=== PATIENT | male | born 1960 | race Caucasian/White ===

== ENCOUNTER 2016-10-04 20:49 | Emergency (ER) | payer MEDICARE, OTHER ==
[~2016-10-04] VITALS: Ht 177.8 cm; Wt 90.9 kg
[~2016-10-04 20:49] MED LIST: AMOXICILLIN 8751 TAB PO; ANTIVERT 25MG25 MG PO; ATARAX 25MG25 MG/TAB PO; ATIVAN1 MG PO; CABERGOLINE0.5 MG PO; DOSTINEX0.5 MG/TAB PO; FLOVENT 110MCG7.9 GM IH; IBU-8800 MG PO; KLONOPIN2 MG PO; LUNESTA 1MG TAB1 MG PO; MINIPRESS 1M1 MG/CAP PO; NASACORT55 MCG/ACT NS; NIACIN500 M3 PO; PREDNISONE20 MG PO; PROAIR HFA0.09 MG/AC IH; RESTORIL30 MG PO; SEROQUEL50 MG PO; SERTRALINE HCL100 MG PO; VISTARIL 2525 MG/CAP PO; WELLBUTRIN SR150 M1 PO; ZOCOR 10MG10 MG PO; ZOLOFT 100MG100 MG PO; [UNRECOGNIZED DRUG - OTHER] PO; [UNRECOGNIZED DRUG - OTHER] PO
[2016-10-04 20:50] VITALS: TEMP 97.8
[2016-10-04] MEDS ORDERED: PREDNISONE20 MG PO (21:14)
[2016-10-04 22:10] VITALS: BP 125/79; PULSE 69
== END 2016-10-04 22:11 | disposition home or self-care (01) ==
LOC: COL.ER 20:49
DX: T78.40XA Allergy, unspecified, initial encounter (principal)
CPT/HCPCS: J7512

== ENCOUNTER 2016-11-13 11:35 | Emergency (ER) | payer MEDICARE, OTHER ==
[~2016-11-13] VITALS: Ht 177.8 cm; Wt 90.9 kg
[2016-11-13 11:41] VITALS: BP 160/91; PULSE 72; TEMP 98.7
== END 2016-11-13 14:04 | disposition home or self-care (01) ==
LOC: COL.ER 11:35
DX: S61.012A Laceration without foreign body of left thumb without damage to nail, initial encounter (principal); F32.9 Major depressive disorder, single episode, unspecified; Z23 Encounter for immunization; W29.1XXA Contact with electric knife, initial encounter

== ENCOUNTER 2016-11-26 10:16 | Emergency (ER) | payer MEDICARE, OTHER ==
[2016-11-26 10:25] VITALS: BP 145/88; PULSE 70; TEMP 98.5
== END 2016-11-26 10:30 | disposition home or self-care (01) ==
LOC: COL.ER 10:16
DX: Z48.02 Encounter for removal of sutures (principal)

== ENCOUNTER 2017-10-26 18:09 | Emergency (ER) | payer MEDICARE, OTHER ==
[~2017-10-26] VITALS: Ht 177.8 cm; Wt 90.9 kg
[2017-10-26 18:11] VITALS: BP 178/88; TEMP 97.8
[2017-10-26] MEDS ORDERED: FLOVENT 110MCG7.9 GM IH (18:29)
[2017-10-26] MEDS ORDERED: SEROQUEL50 MG PO (18:30)
[2017-10-26] MEDS ORDERED: SINGULAIR 110 MG/TAB PO (18:30)
[2017-10-26] MEDS ORDERED: KLONOPIN 0.5MG0.5 MG PO (18:31)
[2017-10-26] MEDS ORDERED: INVEGA3 MG PO (18:31)
[2017-10-26] MEDS ORDERED: LIPITOR 80MG80 MG PO (18:31)
[2017-10-26 19:12] VITALS: PULSE 56
== END 2017-10-26 19:12 | disposition home or self-care (01) ==
LOC: COL.ER 18:09
DX: S61.211A Laceration without foreign body of left index finger without damage to nail, initial encounter (principal); F43.10 Post-traumatic stress disorder, unspecified; Z79.51 Long term (current) use of inhaled steroids; W26.8XXA Contact with other sharp object(s), not elsewhere classified, initial encounter

== ENCOUNTER 2017-11-10 08:52 | Emergency (ER) | payer MEDICARE, OTHER ==
[~2017-11-10 08:52] MED LIST changes: +INVEGA3 MG PO; +KLONOPIN 0.5MG0.5 MG PO; +LIPITOR 80MG80 MG PO; +SINGULAIR 110 MG/TAB PO
[2017-11-10 08:56] VITALS: BP 144/89; PULSE 72; TEMP 97.2
== END 2017-11-10 09:02 | disposition home or self-care (01) ==
LOC: COL.ER 08:52
DX: S61.412D Laceration without foreign body of left hand, subsequent encounter (principal); Z79.51 Long term (current) use of inhaled steroids; X58.XXXD Exposure to other specified factors, subsequent encounter

== ENCOUNTER → 2019-06-16 | Outpatient (CLI) | payer MEDICARE, OTHER | LOC: COL.RAD 09:53 | DX: N28.1 Cyst of kidney, acquired (principal); R74.0 Nonspecific elevation of levels of transaminase and lactic acid dehydrogenase [LDH] ==

== ENCOUNTER 2019-08-13 22:34 | Emergency (ER) | payer MEDICARE, OTHER ==
[~2019-08-13] VITALS: Ht 177.8 cm; Wt 102.3 kg
[2019-08-13 22:38] VITALS: TEMP 97.4
[2019-08-13 23:06] LABS: BASO % 0.4 % (0.0-2.0); EOS # 0.3 (0.0-0.7); EOS % 2.9 % (0-4.0); GRAN # 4.9 (1.4-6.5); HEMATOCRIT 48.4 % (42.0-52.0); HEMOGLOBIN 16.4 g/dl (13.5-18.0); LYMPH # 3.7 (1.2-3.4); LYMPH % 37.8 % (20.0-51.0); MEAN CELL VOLUME 90 fl (80.0-100.0); MEAN CORPUSCULAR HEMOGLOBIN 30 pg (27.0-31.0); MEAN CORPUSCULAR HGB CONC 34 g/dl (33.0-37.0); MEAN PLATELET VOLUME 10.7 fl (7.4-10.4); MONO # 0.8 (0.1-0.6); MONO % 8.6 % (1.7-9.3); PLATELET COUNT 123 K/mm3 (130-400); REDCELL DISTRIBUTION WIDTH-CV 13.1 % (11.5-14.5)
[2019-08-13 23:12] LABS: ALBUMIN 4.3 gm/dL (3.5-5.0); BILIRUBIN,TOTAL 0.8 mg/dL (0.0-1.0); CALCIUM 9.8 mg/dL (8.4-10.2); CREATININE, serum 1.06 (0.66-1.25); POTASSIUM 4.1 mmol/L (3.4-5.0); TOTAL PROTEIN 7.8 gm/dL (6.4-8.2)
[2019-08-14 00:25] LABS: COLLECTION METHOD CLEAN CATCH
[2019-08-14 00:54] LABS: AMORPHOUS CRYSTAL Present /uL; MUCOUS Present /lpf; PH 7 (5-8); SQUAMOUS EPITHELIAL None Seen /hpf; URINE APPEARANCE Cloudy; URINE BACTERIA Rare /hpf; URINE BILIRUBIN Negative (NEGATIVE); URINE BLOOD Negative (NEGATIVE); URINE COLOR Yellow; URINE GLUCOSE Negative (NEGATIVE); URINE KETONE Negative (NEGATIVE); URINE LEUKOCYTE ESTERASE Negative (NEGATIVE); URINE NITRATE Negative (NEGATIVE); URINE PROTEIN(semi-quant) Negative (NEGATIVE); URINE UROBILINOGEN Negative (NEGATIVE)
[2019-08-14 06:16] VITALS: BP 159/88; PULSE 78
== END 2019-08-14 06:30 | disposition short-term general hospital (02) ==
LOC: COL.ER 22:34
PROVIDERS: Emergency Medicine
DX: I81 Portal vein thrombosis (principal); E78.5 Hyperlipidemia, unspecified; F43.10 Post-traumatic stress disorder, unspecified; Z86.73 Personal history of transient ischemic attack (TIA), and cerebral infarction without residual deficits
CPT/HCPCS: J1170; J1650; J2405; J2765; J3010; J7030; Q9967

== ENCOUNTER 2021-02-12 12:48 | Emergency (ER) | payer MEDICARE, OTHER ==
[~2021-02-12] VITALS: Ht 177.8 cm; Wt 102.3 kg
[2021-02-12 12:52] VITALS: TEMP 98
[2021-02-12 13:23] VITALS: BP 119/90; PULSE 76
== END 2021-02-12 13:24 | disposition home or self-care (01) ==
LOC: COL.ER 12:48
DX: S91.301A Unspecified open wound, right foot, initial encounter (principal); E78.5 Hyperlipidemia, unspecified; F43.10 Post-traumatic stress disorder, unspecified; Z79.899 Other long term (current) drug therapy; W26.8XXA Contact with other sharp object(s), not elsewhere classified, initial encounter; Y93.01 Activity, walking, marching and hiking; Y92.59 Other trade areas as the place of occurrence of the external cause

== ENCOUNTER 2021-05-29 13:49 | Emergency (ER) | payer MEDICARE, OTHER ==
[~2021-05-29] VITALS: Ht 177.8 cm; Wt 106.8 kg
[2021-05-29 14:08] VITALS: TEMP 98.6
[2021-05-29] MEDS ORDERED: AMOXICILLIN 8751 TAB PO (14:23)
[2021-05-29 15:12] VITALS: BP 158/68; PULSE 88
== END 2021-05-29 15:15 | disposition home or self-care (01) ==
LOC: COL.ER 13:49
DX: S61.452A Open bite of left hand, initial encounter (principal); E78.5 Hyperlipidemia, unspecified; F43.10 Post-traumatic stress disorder, unspecified; Z86.73 Personal history of transient ischemic attack (TIA), and cerebral infarction without residual deficits; Z79.899 Other long term (current) drug therapy; W53.11XA Bitten by rat, initial encounter

== ENCOUNTER 2021-10-08 15:49 | Emergency (ER) | payer MEDICARE, OTHER ==
[~2021-10-08] VITALS: Ht 177.8 cm; Wt 104.5 kg
[2021-10-08 15:54] VITALS: TEMP 98
[2021-10-08 16:27] LABS: BASO # 0.1 K/mm3 (0.0-0.2); BASO % 0.8 % (0.0-2.0); EOS # 0.4 K/mm3 (0.0-0.7); EOS % 5.5 % (0.0-4.0); GRAN % 46.3 % (42.2-75.2); HEMATOCRIT 47.5 % (42.0-52.0); HEMOGLOBIN 16.4 g/dl (13.5-18.0); LYMPH # 2.5 K/mm3 (1.2-3.4); LYMPH % 38.9 % (20.0-51.0); MEAN CELL VOLUME 89 fl (80.0-100.0); MEAN CORPUSCULAR HEMOGLOBIN 31 pg (27-31); MEAN CORPUSCULAR HGB CONC 35 g/dl (33.0-37.0); MEAN PLATELET VOLUME 10.9 fl (7.4-10.4); MONO # 0.5 K/mm3 (0.1-0.6); PLATELET COUNT 154 K/mm3 (130-400); RED BLOOD COUNT 5.33 M/mm3 (4.20-5.60); REDCELL DISTRIBUTION WIDTH-CV 13.2 % (11.5-14.5)
[2021-10-08 16:38] LABS: ALBUMIN 3.7 gm/dL (3.4-4.8); BILIRUBIN,TOTAL 0.7 mg/dL (0.2-1.2); CALCIUM 8.7 mg/dL (8.4-10.2); POTASSIUM 4.2 mmol/L (3.5-4.5); TOTAL PROTEIN 7.3 gm/dL (6.2-8.1)
[2021-10-08] MEDS ORDERED: GARLIC100 MG PO (16:48)
[2021-10-08] MEDS ORDERED: OSTEO-BI-FLEX 21 TAB PO (16:48)
[2021-10-08] MEDS ORDERED: [UNRECOGNIZED DRUG - OTHER] (16:49)
[2021-10-08] MEDS ORDERED: MAGNESIUM250 M1 PO (16:49)
[2021-10-08 16:50] LABS: C-REACTIVE PROTEIN 0.11 mg/dL (0.00-0.50)
[2021-10-08] MEDS ORDERED: ZYRTEC 10MG10 MG PO (16:50)
[2021-10-08] MEDS ORDERED: OMEGA-31 SGL PO (16:50)
[2021-10-08] MEDS ORDERED: DEPAKOTE ER 50500 MG PO (16:51)
[2021-10-08] MEDS ORDERED: NIACIN 100100 MG/TAB PO (16:51)
[2021-10-08] MEDS ORDERED: UROXATRAL10 M1 PO (16:52)
[2021-10-08] MEDS ORDERED: XARELTO10 MG PO (16:53)
[2021-10-08] MEDS ORDERED: TUMERIC (16:53)
[2021-10-08] MEDS ORDERED: MELATONIN5 M1 SL (16:54)
[2021-10-08] MEDS ORDERED: [UNRECOGNIZED DRUG - OTHER] (16:54)
[2021-10-08 16:58] LABS: ERYTHROCYTE SEDIMENTATION RATE 1 mm/hr (0-30)
[2021-10-08] MEDS ORDERED: FIORICET 325 MG1 TA1 PO (17:34)
[2021-10-08 17:48] VITALS: BP 142/76; PULSE 68
== END 2021-10-08 17:49 | disposition home or self-care (01) ==
LOC: COL.ER 15:49
PROVIDERS: Family Medicine
DX: G89.29 Other chronic pain (principal); R51.9 Headache, unspecified; Z87.891 Personal history of nicotine dependence; Z86.73 Personal history of transient ischemic attack (TIA), and cerebral infarction without residual deficits; Z79.01 Long term (current) use of anticoagulants
CPT/HCPCS: J7120

== ENCOUNTER → 2022-02-28 | Outpatient (CLI) | payer MEDICARE, OTHER ==
[~2022-02-28] MED LIST changes: +DEPAKOTE ER 50500 MG PO; +FIORICET 325 MG1 TA1 PO; +GARLIC100 MG PO; +MAGNESIUM250 M1 PO; +MELATONIN5 M1 SL; +NIACIN 100100 MG/TAB PO; +OMEGA-31 SGL PO; +OSTEO-BI-FLEX 21 TAB PO; +TUMERIC; +UROXATRAL10 M1 PO; +XARELTO10 MG PO; +ZYRTEC 10MG10 MG PO; +[UNRECOGNIZED DRUG - OTHER]; +[UNRECOGNIZED DRUG - OTHER]
== END ==
LOC: COL.RAD 09:00
DX: M47.816 Spondylosis without myelopathy or radiculopathy, lumbar region (principal); M47.817 Spondylosis without myelopathy or radiculopathy, lumbosacral region; M51.26 Other intervertebral disc displacement, lumbar region; M51.27 Other intervertebral disc displacement, lumbosacral region; M48.061 Spinal stenosis, lumbar region without neurogenic claudication; M48.07 Spinal stenosis, lumbosacral region

== ENCOUNTER 2023-09-25 18:10 | Emergency (ER) | payer MEDICARE, OTHER ==
[~2023-09-25] VITALS: Ht 177.8 cm; Wt 102.3 kg
[~2023-09-25 18:10] MED LIST changes: +CEPHALEXIN500 M1 PO; +XARELTO20 MG PO
[2023-09-25 18:31] VITALS: TEMP 98.6
[2023-09-25] MEDS ORDERED: Acetaminophen 325 MG TAB PO ONE (19:00)
[2023-09-25 19:06] LABS: BASO % 0.4 % (0.0-2.0); EOS # 0.5 K/mm3 (0.0-0.7); EOS % 6.4 % (0.0-4.0); GRAN # 5.2 K/mm3 (1.4-6.5); GRAN % 64.8 % (42.2-75.2); HEMATOCRIT 45.7 % (42.0-52.0); HEMOGLOBIN 16.3 g/dl (13.5-18.0); LYMPH # 1.6 K/mm3 (1.2-3.4); LYMPH % 19.8 % (20.0-51.0); MEAN CELL VOLUME 87 fl (80.0-100.0); MEAN CORPUSCULAR HEMOGLOBIN 31 pg (27-31); MEAN CORPUSCULAR HGB CONC 36 g/dl (33.0-37.0); MEAN PLATELET VOLUME 10.2 fl (7.4-10.4); MONO # 0.7 K/mm3 (0.1-0.6); MONO % 8.4 % (1.7-9.3); PLATELET COUNT 146 K/mm3 (130-400); RED BLOOD COUNT 5.23 M/mm3 (4.20-5.60); REDCELL DISTRIBUTION WIDTH-CV 13.2 % (11.5-14.5)
[2023-09-25] MEDS ORDERED: HYDROcodone/Chlorphen Polst ER Susp 10-8 MG/5 ML UD PO ONE (19:30)
[2023-09-25 19:38] LABS: ALANINE AMINOTRANSFERASE 41 U/L (0-55); ALBUMIN 3.5 gm/dL (3.4-4.8); ALKALINE PHOSPHATASE 53 U/L (40-150); ANION GAP 10 mmol/L (7-16); AST,SGOT 32 U/L (5-34); BILIRUBIN,TOTAL 0.5 mg/dL (0.2-1.2); BLOOD UREA NITROGEN 18 mg/dL (8-26); CALCIUM 9.2 mg/dL (8.4-10.2); CARBON DIOXIDE 24 mmol/L (23-31); CHLORIDE 105 mmol/L (98-107); GLUCOSE 121 mg/dL (70-99); POTASSIUM 3.2 mmol/L (3.5-4.5); SODIUM 139 mmol/L (136-145); TOTAL PROTEIN 7.1 gm/dL (6.2-8.1)
[2023-09-25 19:47] LABS: TROPONIN-I < 0.010 ng/mL (0.00-0.033)
[2023-09-25] MEDS ORDERED: ZITHROMAX Z PA250 MG PO (20:20)
[2023-09-25] MEDS ORDERED: CHERATUSSIN AC120 ML PO (20:20)
[2023-09-25] MEDS ORDERED: Azithromycin 250 MG TAB PO ONE (20:30)
[2023-09-25 20:31] VITALS: BP 118/67; PULSE 82
== END 2023-09-25 20:31 | disposition home or self-care (01) ==
LOC: COL.ER 18:10
PROVIDERS: Physician Assistant
DX: J20.9 Acute bronchitis, unspecified (principal)